=== PATIENT | male | born 1985 | race African-American/Black ===

== ENCOUNTER 2016-07-18 09:32 | Day surgery (SDC) | payer OTHER, BC ==
[~2016-07-18] VITALS: Ht 188 cm; Wt 92.9 kg
[~2016-07-18 09:32] MED LIST: CYCLOBENZAPRINE10 MG PO; FLEXERIL10 MG PO; MOTRIN600 MG PO; NAPROSYN500 MG PO; NO MEDS; NORCO 5/3251 TABLET PO; OXYCODONE H5 MG/5 ML PO; VENTOLIN HFA18 GM IH
[2016-07-18 10:12] VITALS: BP 112/62
[2016-07-18] MEDS ORDERED: PERCOCET 5/31 TABLET PO (13:02)
[2016-07-18 14:59] VITALS: BP 118/63
== END 2016-07-18 15:25 | disposition home or self-care (01) ==
LOC: SDC 09:32
PROC: 0YQ50ZZ Repair Right Inguinal Region, Open Approach (ICD-10-PCS; principal; 2016-07-18)
DX: K40.90 Unilateral inguinal hernia, without obstruction or gangrene, not specified as recurrent (principal); J45.909 Unspecified asthma, uncomplicated; Z87.891 Personal history of nicotine dependence
CPT/HCPCS: C1781; J1100; J2250; J2405; J3010; S0020

== ENCOUNTER 2018-01-06 08:07 | Emergency (ER) | payer BC ==
[~2018-01-06] VITALS: Ht 185.4 cm; Wt 93.2 kg
[~2018-01-06 08:07] MED LIST changes: +PERCOCET 5/31 TABLET PO
[2018-01-06 10:45] VITALS: BP 110/65
== END 2018-01-06 10:47 | disposition home or self-care (01) ==
LOC: EME 08:07
DX: S92.415A Nondisplaced fracture of proximal phalanx of left great toe, initial encounter for closed fracture (principal); W22.03XA Walked into furniture, initial encounter; Z88.2 Allergy status to sulfonamides; Z88.0 Allergy status to penicillin
CPT/HCPCS: 73630; 99281; 99283